=== PATIENT | female | born 1950 | race Asian ===

== ENCOUNTER 2021-01-05 16:54 | Emergency (ER) | payer OTHER ==
[~2021-01-05] VITALS: Ht 170.2 cm; Wt 65.3 kg
[~2021-01-05 16:54] MED LIST: AMLO2.5T PO; CVS GLYCERIN ADU2 GM RE; DOCU100C10 PO; EC-81 ASPIRIN81 MG PO; ESCI10TA PO; HYDR25TA60 PO; IRON325 MG PO; LIPITOR40 MG PO; LISI20TA11 PO; MAGNSUS68 PO; MELATONIN3 M2 PO; PAIN & FEVER325 MG PO; RISP0.25 PO
[2021-01-05 16:56] VITALS: BP 154/90; TEMP 98.1
[2021-01-05 17:18] LABS: PLATELET COUNT 165 K/uL (152-353)
[2021-01-05 17:25] LABS: POTASSIUM 3.2 mmol/L (3.6-5.2)
[2021-01-06] MEDS ORDERED: HYDR25TA60 PO (00:09)
== END 2021-01-05 17:55 | disposition still patient (30) ==
LOC: ED 16:54
PROVIDERS: Hospitalist
DX: F03.90 Unspecified dementia, unspecified severity, without behavioral disturbance, psychotic disturbance, mood disturbance, and anxiety (principal); F25.8 Other schizoaffective disorders; Z11.52 Encounter for screening for COVID-19; Z04.6 Encounter for general psychiatric examination, requested by authority
CPT/HCPCS: 80053; 81000; 85027; 87635; 99283; U0003

== ENCOUNTER 2021-06-04 22:52 | Emergency (ER) | payer OTHER ==
[~2021-06-04] VITALS: Ht 170.2 cm; Wt 65.3 kg
[~2021-06-04 22:52] MED LIST changes: +ASA LOW DOSE81 MG PO
[2021-06-04 23:00] VITALS: BP 180/98; TEMP 98.1
[2021-06-05 00:03] LABS: POTASSIUM 3.1 mmol/L (3.6-5.2)
[2021-06-05 00:45] LABS: PLATELET COUNT 168 K/uL (152-353)
[2021-06-05] MEDS ORDERED: AMLODIPINE BESYLATE PO (10:01)
[2021-06-05] MEDS ORDERED: HYDR25CA25 PO (10:06)
== END 2021-06-05 00:57 | disposition still patient (30) ==
LOC: ED 22:52
PROVIDERS: Hospitalist
DX: F03.91 Unspecified dementia, unspecified severity, with behavioral disturbance (principal); Z11.52 Encounter for screening for COVID-19; Z04.6 Encounter for general psychiatric examination, requested by authority
CPT/HCPCS: 36415; 80053; 81000; 85008; 85027; 87635; 93005; 99283; U0003